=== PATIENT | female | born 1990 | race Caucasian/White ===

== ENCOUNTER 2018-04-18 14:26 | Emergency (ER) | payer OTHER ==
[~2018-04-18] VITALS: Ht 165.1 cm; Wt 50.3 kg
[~2018-04-18 14:26] MED LIST: ALLEGRA ALLERG180 MG PO; AMOX1TAB12 PO; DOLOGESIC CAPLE1 TAB PO; IBUPROFEN800 MG PO; INTESTINEX1 CAP PO; TUSICOF LIQUID120 ML PO; TUSNEL C SYRUP473 ML PO; ZYRTEC5 MG PO
== END 2018-04-18 19:37 | disposition home or self-care (01) ==
LOC: ER 14:26
DX: R10.11 Right upper quadrant pain (principal)

== ENCOUNTER 2019-03-26 20:20 | Emergency (ER) | payer OTHER ==
[~2019-03-26] VITALS: Ht 165.1 cm; Wt 53.5 kg
[2019-03-26] MEDS ORDERED: CARAFATE1 GM PO (23:55)
== END 2019-03-27 00:10 | disposition home or self-care (01) ==
LOC: ER 20:20
DX: R10.84 Generalized abdominal pain (principal)

== ENCOUNTER 2020-09-01 20:12 | Emergency (ER) | payer OTHER ==
[~2020-09-01] VITALS: Ht 165.1 cm; Wt 61.7 kg
[~2020-09-01 20:12] MED LIST changes: +CARAFATE1 GM PO
== END 2020-09-01 22:58 | disposition home or self-care (01) ==
LOC: ER 20:12
DX: Q76.49 Other congenital malformations of spine, not associated with scoliosis (principal)